=== PATIENT | male | born 1990 | race Caucasian/White ===

== ENCOUNTER 2021-04-20 19:18 | Emergency (ER) | payer MEDICAID, SELFPAY ==
[2021-04-20 19:19] VITALS: BP 141/89; PULSE 88; RESP 16; TEMP 36.6; O2SAT 95; BMI 23.8
--- NOTE | 2021-04-20 20:56 | EX.ED.GUMALE ---
HPI History of Present Illness Chief Complaint: Complaint Narrative Narrative: Patient presenting for evaluation secondary to hematuria. Patient states that since last night he has had around 3-4 episodes of bloody urine. He states that it is associated with some dysuria. Patient also reports that last night he had a massive hernia. Patient denies any flank pain. Denies any fevers. Denies any testicular pain. Denies any recent injuries associated with this. Is never had any prior similar episodes in the past. Patient is otherwise healthy. He is not on chronic medications. Review of systems otherwise negative. [facility] Medical History (Updated 04/20/21 @ 22:[address] Ravi Godoy MD) Anxiety Home Medications cephalexin 500 mg PO Q12 #14 capsule 04/20/21 [Rx Last Taken Unknown] Allergy/AdvReac Type Severity Reaction Status Date / Time No Known Allergies Allergy Verified 04/20/21 19:19 Social History Smoking Status: Current every day smoker tobacco type: cigarettes ROS ROS ED Constitutional Constitutional ED: Denies chills or fever(s) ENT ENT ED: Denies rhinorrhea Cardiovascular Cardiovascular: Denies chest pain Respiratory/Chest Respiratory/Chest: Denies cough or dyspnea Gastrointestinal Gastrointestinal: Denies abdominal pain, diarrhea, nausea or vomiting Genitourinary Genitourinary ED: Reports dysuria, hematuria and other Details: Hematospermia Musculoskeletal Musculoskeletal: Denies back pain Integumentary Denies rash Neurologic Neurologic: Denies paresthesias or weakness Psychiatric Psychiatric: Denies depression Endocrine Endocrinology: Denies fatigue Allergic/Immunologic Allergic/Immunologic ED: Denies urticaria EXAM Physical Exam Const Vital Signs: 04/20/21 19:19 04/20/21 21:08 Temperature 97.8 F Temperature Source Temporal Pulse Rate 88 Respiratory Rate 16 16 Blood Pressure 141/89 H Blood Pressure Mean 106 Pulse Ox 95 Oxygen Delivery Method Room Air Positive well nourished and well developed General Appearance ED: well developed and NAD HEENT Reports moist mucous membranes Negative for trauma or tenderness Eyes EOMs intact bilaterally Neck no lymphadenopathy, supple and no JVD Chest Wall inspection of chest normal Resp normal respiratory effort and clear to auscultation bilaterally Cardio regular rate, regular rhythm, no murmurs and peripheral pulses 2+ throughout GI normal to inspection, nondistended, normoactive bowel sounds, non-tender and no masses Palpation: soft Narrative: exam demonstrates external genitalia that are normal. Testicles are in a normal lie, there are nontender positive cremasteric reflex no evidence of palpable masses spermatic cord appears normal no evidence of mass or hernia with Valsalva. Patient has no evidence of penile lesions, no penile discharge. No inguinal adenopathy is noted. Back/Spine normal to inspection Extremity normal to inspection General Extremety ED: Negative for tenderness Neuro oriented x3 and no sensory deficits noted Sensorium / Orientation: alert Motor Exam: strength 5/5 throughout Psych mental status grossly normal Skin no rashes or lesions noted MDM MDM MDM Narrative Medical decision making narrative: Patient presented secondary to dysuria and hematuria. Patient has normal physical exam. Urinalysis demonstrates 5-10 white blood cells. Patient at this point potentially has an element of a urinary tract infection. I will place patient on a course of Keflex, first dose given in the emergency department. Given the patient's hematospermia I will give him follow-up with urology. Patient was discharged in stable condition. Lab Data Labs: Laboratory Results - last 24 hr 04/20/21 21:04 Urine Color Yellow Urine Clarity Clear Urine pH 6.0 Ur Specific Mel[place] 1.030 Urine Protein Negative Urine Glucose (UA) Normal Urine Ketones Negative Urine Occult Blood Negative Urine Nitrite Negative Urine Bilirubin Negative Urine Urobilinogen Normal Ur Leukocyte Esterase 25 H Urine RBC 0 SEEN Urine WBC 5-10 SEEN Ur Squamous Epith Cells 0-5 SEEN Urine Bacteria 0 SEEN Urine Mucus 0 SEEN Discharge Plan Triage Chief Complaint: Complaint ED Provider: Ravi Godoy Dx/Rx/DC Orders Clinical Impression: Acute UTI, Hematospermia Instructions: ED Urinary Tract Infections in Men Prescriptions: New cephalexin 500 mg capsule 500 mg PO Q12 Qty: 14 RF: 0 Primary Care Provider: Care Physician,No Primary Referrals: Mp Martin MD [STAFF PHYSICIAN] - 1-2 Weeks Care Physician,No Primary [Primary Care Provider] - Disposition Disposition: Home, Self Care
[2021-04-20 21:08] VITALS: RESP 16
[2021-04-20 21:17] LABS: Bacteria 0 SEEN /hpf (None Seen); Mucous, Urine 0 SEEN /hpf (<or=2+); Red Blood Cells-Urine 0 SEEN /hpf (0-5)
[2021-04-20 22:03] LABS: Color, Urine Yellow (Yellow); Glucose, Dipstick Normal (Normal); Ketone-Dipstick Negative (Negative); Leukocyte Esterase-Dipstick 25 /ul (Negative); Nitrite-Dipstick Negative (Negative); Occult Blood-Urine Negative /ul (Negative); Protein-Dipstick Negative (Negative); Urine Bilirubin Dipstick Negative (Negative); Urine Clarity Clear (Clear); Urine Urobilinogen Normal (Normal)
[2021-04-20 22:20] LABS: Squamous Epithelial Cells - UA 0-5 SEEN /hpf (0-5); White Blood Cells 5-10 SEEN /hpf (0-5)
[2021-04-20] MEDS: Cephalexin 250 MG Capsule 500 MG PO (22:48)
[2021-04-20 22:51] VITALS: RESP 16; O2SAT 98
== END 2021-04-20 22:51 | disposition home or self-care (01) ==
PROVIDERS: Emergency Provider Emergency Medicine
DX: N39.0 Urinary tract infection, site not specified (principal); R36.1 Hematospermia; F17.210 Nicotine dependence, cigarettes, uncomplicated
CPT/HCPCS: 81001; 99283

== ENCOUNTER 2021-10-04 15:00 | Emergency (ER) | payer MEDICAID, SELFPAY ==
[2021-10-04 15:01] VITALS: BP 144/112; PULSE 108; RESP 16; TEMP 35.7; O2SAT 99; BMI 25.0
--- NOTE | 2021-10-04 15:10 | ED.RN ---
Addendum entered by Mary Lundy 10/04/21 16:44: PT HAD SOILED SELF. ASSIST WITH GETTING NEW CLOTHES AND CLEANED UP. PLACED IN TRIAGE 2 WHERE HE USED PHONE TO CALL HIS S/O Original Note: PT VERY ANXIOUS/WORKED UP ABOUT OVERDOSING. I CANT BELIEVE I . I NEVER THOUGHT THIS WOULD HAPPEN TO ME, IM FREAKED OUT. OFFICER IN TRIAGE TALKING WITH PT ABOUT WHAT HAPPENED AND HAVING TO REVIVE HIM WITH NARCAN. WHEN OFFICER WAS DONE AND LEFT ROOM THIS NURSE DISCUSSED DRUG ABUSE AND RISKS WITH PATIENT AGAIN. DISCUSSED INPATIENT REHAB WHETHER HE WAS READY TO TAKE THAT STEP TO GET CLEAN. PT DECLINES DRUG REHAB AT THIS TIME. PT DENIES SI. ABSOLUTELY NOT. I NEVER THOUGHT THIS WOULD HAPPEN.
--- NOTE | 2021-10-04 16:02 | EX.ED.VIS.PS ---
HPI HPI - Psych History of Present Illness Chief Complaint: Overdose Detail of Chief Complaint: Intentional overdose Informant: patient and spouse/S.O. Onset/Context/Timing Onset: Hours Context: Sudden Onset Conflict: Family, Work and Financial Timing: Continuous Current Severity: Moderate Maximum Severity: Severe Worsened by: Situational factors and - (Patient was terminated from his job please read HPI) Relieved by: Nothing Associated Symptoms Associated Symptoms - Psych: Positive for Depressed Specific plan (suicidal thought): Overdosed snorting fentanyl Narrative Narrative: Patient is a 31-year-old male who has had admitted opiate addiction/dependency. His addiction/dependency has caused him problems with work and because he called off today again he was terminated. He snorted fentanyl. He does not inject and collaborated by significant other. He denies history of hepatitis or HIV. He does admit he has a problem. He has been snorting off and on for several months. Patient states he has symptoms of withdrawal when he does not use and this is caused him to miss work. Prior similar symptoms: No Recent Illness/Hospitalization: No [facility] Medical History (Updated 10/04/21 @ 20:[address] Selvin Alonzo MD) Alcohol abuse Anxiety Borderline personality disorder Depression Substance abuse Home Medications hydroxyzine pamoate 50 mg PO DAILY 10/04/21 [History Last Taken 10/03/21] Allergy/AdvReac Type Severity Reaction Status Date / Time No Known Allergies Allergy Verified 04/20/21 19:19 Social History (Updated 10/04/21 @ 16:[address] Selvin Alonzo MD) household members: significant other Smoking Status: Current every day smoker tobacco type: cigarettes alcohol intake: current substance use type: opiates ROS ROS ED Constitutional Constitutional ED: Denies chills, fever(s), subjective, sweats or weight loss Eyes Eyes: Denies blurry vision, change in vision or diplopia ENT ENT ED: Denies ear pain, rhinorrhea or sore throat Cardiovascular Cardiovascular: Denies chest pain, orthopnea, palpitations, paroxysmal nocturnal dyspnea or racing heartbeat Respiratory/Chest Respiratory/Chest: Denies cough, dyspnea, dyspnea on exertion, orthopnea, paroxysmal nocturnal dyspnea or sputum Gastrointestinal Gastrointestinal: Reports abdominal pain, diarrhea and nausea; Denies constipation, melena or vomiting Genitourinary Genitourinary ED: Denies dysuria, hematuria or urinary frequency Musculoskeletal Musculoskeletal: Denies arthralgias, back pain, myalgias or neck pain Integumentary Denies Abrasions or rash Neurologic Neurologic: Denies headache(s) or weakness Psychiatric Psychiatric: Reports anxiety, depression, suicidal thoughts and other Details: Suicide attempt Endocrine Endocrinology: Denies polydipsia, polyphagia or polyuria Hematologic/Lymphatic Hematologic/Lymphatic: Denies easy bleeding or easy bruising EXAM Physical Exam Const Vital Signs: 10/04/21 15:01 10/04/21 16:04 10/04/21 18:00 Temperature 96.3 F L Temperature Source Temporal Pulse Rate 108 H 82 86 Respiratory Rate 16 16 16 Blood Pressure 144/112 H 161/115 H 151/108 H Blood Pressure Mean 122 130 122 Pulse Ox 99 98 97 Oxygen Delivery Method Room Air Room Air Room Air 10/04/21 20:38 10/04/21 21:57 Temperature Temperature Source Pulse Rate Respiratory Rate 17 15 Blood Pressure Blood Pressure Mean Pulse Ox Oxygen Delivery Method Positive well nourished and well developed General Appearance ED: well developed and other Patient has a depressed affect, he is tearful, ; Negative for NAD or pallor HEENT Reports TM's clear and moist mucous membranes HEENT Narrative: Nares patent. Mild rhinorrhea. Posterior pharynx out erythema exudate. Uvula midline. There is no angioedema. There is no carotid bruit. normocephalic and atraumatic; Negative for trauma or tenderness Tympanic Membrane ED: Yes TM's clear Eyes PERRL and EOMs intact bilaterally General Eye ED: Negative for pale conjunctiva or scleral icterus Neck no lymphadenopathy, supple and no JVD General: Negative for tenderness Resp normal respiratory effort and clear to auscultation bilaterally Cardio S1 normal heart sound, S2 normal heart sound and no murmurs Rate: tachycardic Rhythm: regular rhythm GI non-tender, non-distended and no masses Auscultation: normoactive bowel sounds Palpation: soft Back/Spine no CVA tenderness Cervical Spine: Negative for cervical spine tenderness Thoracic Spine / Upper Back: Negative for thoracic spinal tenderness Lumbar Spine / Lower Back: Negative for lumbar spinal tenderness Extremity normal to inspection General Extremety ED: Negative for edema or tenderness General Extremity: Negative for edema Neuro oriented x3, CN's II-XII intact bilaterally and deep tendon reflexes 2+ bilaterally Lincoln Coma Scale: document GCS findings Spontaneous Obeys Commands Oriented 15 Sensorium / Orientation: alert and oriented to person Motor Exam: strength 5/5 throughout Psych cooperative, denies hallucinations and denies homicidal ideation; Negative for denies suicidal ideation Appearance: grossly normal Attitude: engaged Activity / Motor Behavior: psychomotor slowing Speech: slow, soft, No mute, No pressured and No slurred Mood & Affect: depressed, sad, tearful and labile affect Thought Process: normal thought process Thought Content: suicidality Attention / Concentration: attention grossly intact Memory / Cognition: memory grossly intact and memory grossly impaired Insight: questionable Judgement: limited Skin no rashes or lesions noted General Skin Exam: Negative for jaundice or pallor Lesions: no lesions Rashes: no rashes MDM MDM MDM Narrative Medical decision making narrative: Patient attempted to harm himself by overdose requiring 4 mg of Narcan. He admits he has a drug addiction problem. He admits he attempted to harm himself. Consulted licensed direct entry midwife to facilitate placement for inpatient psychiatric care. Patient is medically cleared. He was accepted at [facility]. Lab Data Attestation: I reviewed the patient's lab results. Lab results narrative: CBC is unremarkable. Electrolyte panel is unremarkable. Alcohol is 118. Tox screen was positive for cannabis. 2-hour alcohol level is 47. Patient was seen by case management. She is working on disposition to psychiatric facility. Labs: Laboratory Results - last 24 hr 10/04/21 10/04/21 10/04/21 16:00 16:00 16:00 WBC 6.8 RBC 4.82 Hgb 16.1 Hct 45.9 MCV 95.2 H MCH 33.4 H MCHC 35.1 RDW Std Deviation 40.2 RDW Coeff of Zafar 11.5 L Plt Count 317 MPV 9.3 Immature Gran % (Auto) 0.600 Neut % (Auto) 69.9 Lymph % (Auto) 16.9 L Bell % (Auto) 5.7 Eos % (Auto) 6.3 H Baso % (Auto) 0.6 Absolute Neuts (auto) 4.8 Absolute Lymphs (auto) 1.15 Nucleated RBC % 0 Sodium 142 Potassium 3.6 Chloride 110 H Carbon Dioxide 27.0 Anion Gap 5 BUN 5 L Creatinine 0.87 Estim Creat Clear Calc 149.74 Est GFR (MDRD) Af Amer 133 Est GFR (MDRD) Non-Af 110 BUN/Creatinine Ratio 5.8 L Glucose 85 Calcium 9.0 Urine Opiates Screen Urine Methadone Screen Ur Barbiturates Screen Ur Phencyclidine Scrn Ur Amphetamines Screen U Methamphetamin-MDMA U Benzodiazepines Scrn Urine Cocaine Screen U Cannabinoids Screen Ur Drug Screen Comment Ethyl Alcohol 118.0 10/04/21 10/04/21 16:38 17:00 WBC RBC Hgb Hct MCV MCH MCHC RDW Std Deviation RDW Coeff of Zafar Plt Count MPV Immature Gran % (Auto) Neut % (Auto) Lymph % (Auto) Bell % (Auto) Eos % (Auto) Baso % (Auto) Absolute Neuts (auto) Absolute Lymphs (auto) Nucleated RBC % Sodium Potassium Chloride Carbon Dioxide Anion Gap BUN Creatinine Estim Creat Clear Calc Est GFR (MDRD) Af Amer Est GFR (MDRD) Non-Af BUN/Creatinine Ratio Glucose Calcium Urine Opiates Screen NEGATIVE Urine Methadone Screen NEGATIVE Ur Barbiturates Screen NEGATIVE Ur Phencyclidine Scrn NEGATIVE Ur Amphetamines Screen NEGATIVE U Methamphetamin-MDMA NEGATIVE U Benzodiazepines Scrn NEGATIVE Urine Cocaine Screen NEGATIVE U Cannabinoids Screen POSITIVE H Ur Drug Screen Comment Ethyl Alcohol 47.0 Discharge Plan Triage Chief Complaint: Overdose ED Provider: Selvin Alonzo Dx/Rx/DC Orders Clinical Impression: Suicide attempt by fentanyl overdose, Depression Prescriptions: No Action hydroxyzine pamoate 50 mg capsule 50 mg PO DAILY RF: 0 Primary Care Provider: Care Physician,No Primary Referrals: Care Physician,No Primary [Primary Care Provider] - Disposition Disposition: Psychiatric Hospital or Unit
[2021-10-04 16:04] VITALS: BP 161/115; PULSE 82; RESP 16; O2SAT 98
[2021-10-04 16:11] LABS: Absolute Lymphocyte Count 1.15 X10^3/uL (0.83-4.51); Absolute Neutrophil Count 4.8 X10^3/uL (2.0-7.7); Basophil# 0.04 X10^3/uL; Basophil% 0.6 % (0-1); Eosinophil# 0.43 X10^3/uL; Eosinophils% 6.3 % (0-5); Hematocrit 45.9 % (40-54); Hemoglobin 16.1 g/dL (13.0-16.5); Lymphocyte # 1.15 X10^3/ul (0.83-4.51); Lymphocyte % 16.9 % (19-41); Mean Corp Hgb Conc 35.1 g/dL (32-36); Mean Corpuscular Hgb 33.4 pg (27.0-32.0); Mean Corpuscular Volume 95.2 fL (80-94); Mean Platelet Vol. 9.3 fl (6.2-12.0); Monocyte# 0.39 X10^3/uL; Monocyte% 5.7 % (0-10); NRBC Flagged by Analyzer 0 % (0-5); Neutrophil # 4.75 X10^3/uL (2.7-7.7); Neutrophil % 69.9 % (47-70); Platelet Count 317 K/mm3 (150-450); RBC Distribution Width CV 11.5 % (11.6-14.6); RBC Distribution Width SD 40.2 fl (35.1-43.9); Red Blood Count 4.82 M/mm3 (4.6-6.2); White Blood Count 6.8 K/mm3 (4.4-11.0)
[2021-10-04 16:31] LABS: Anion Gap 5 (5-15); BUN 5 mg/dL (7-18); BUN/Creat Ratio 5.8 RATIO (10-20); Chloride 110 mmol/L (98-107); Creatinine, Serum 0.87 mg/dL (0.70-1.30); EST Glomerular Filtration Rate 110 mL/min (>60); Est Glom Filt Rate - Afr Amer 133 mL/min (>60); Estimated Creatinine Clearance 149.74 ml/min; Glucose 85 mg/dL (74-106); Potassium 3.6 mmol/L (3.5-5.1); Sodium Level 142 mmol/L (136-145)
--- NOTE | 2021-10-04 17:02 | CM.ED ---
Social Work Consult: Suicidal Referral source: Dr. Alonzo. Chief Complaint: Patient states to have overdose on Fentanyl in attempt to end life. Patient states plan was to do as much as I could until I didn't wake up. Marital/Social History: Single. Engaged to Yael Gaspar and has been in relationship with for the past three years. Living Situation: Lives with girlfriend and another roommate. Support/Resources: No active counseling or community resources. Reports to have last been involved in community resources last summer and to have been involved with [facility] for substance abuse treatment. History: None Education/Employment History: Was working at [employer] until this morning when patient was fired. Patient reports to have been working for [employer] for the past month. Patient states to have been having attendance issues due to withdrawal symptoms. Patient denies issues with comprehension or understanding. Mental Health Treatment/History: Borderline Personality, Anxiety, and Depression. Patient reports to have taken Vistaril a few days ago but this was not prescribed to patient. Patient denies any current prescribed medications to manage mental health. Patient denies history of inpatient psychiatric placement. Triggers/Stressors: Losing job this morning, politics, the climate. Coping Skills: Listening to music, going on walks, talking with fironnie. Abuse Issues: Denies Substance Abuse Hx: Reports to abuse Fentanyl. Patient reports to use THC and to have last used 2 days ago. Patient reports to abuse alcohol at times and to have last drank this morning. Risk to Self/Others: Patient reports suicidal thoughts all this morning. Patient reports intent and plan to kill self by overdosing on whatever I could take. Patient reports history of overdosing to complete suicide one year ago, but I did not get help. Patient denies homicidal thoughts, plans, intents. Patient denies violence against others. Mental Exam: A&Ox3 Appearance/General Behavior: calm. Mood/Affect: Depressed. Sad. Tearful. Communication Pattern: Responds to questions. Thought Process: Denies visual or auditory hallucinations. Judgement: Poor Assessment: Met with patient in room. Introduced self and social work instructor role. Patient agreeable to speak with this social work instructor. Patient Yael de la rosa present. Patient wishing for Yael to remain present in room during conversation. This social work instructor inquired as to how patient is feeling. Patient state embarrassed, gokul. Patient states to have scared myself. Patient reports to not feel safe to return to the community with outpatient services. Patient is open to inpatient psychiatric placement due to patient suicide attempt and not able to contract for safety. Per EMS patient was . Narcan was administered and patient brought back to life. Yael reports to have been with patient and to have called the police. Active support and listening provided. Collaborating with Dr. Alonzo. Dr. Alonzo agreeable to inpatient psychiatric placement. PLAN: Inpatient psychiatric placement. Will continue to follow. Abigail Negrete MSW, YAIMA-S
[2021-10-04 17:59] LABS: Amphetamine Urine VISTA NEGATIVE (<1000 ng/mL); Barbiturate Urine VISTA NEGATIVE (< 200 ng/mL); Benzodiazepine Urine VISTA NEGATIVE (< 200 ng/mL); Cocaine Urine VISTA NEGATIVE (< 300 ng/mL); Ecstacy Urine VISTA NEGATIVE (< 500 ng/mL); Methadone Urine VISTA NEGATIVE (< 300 ng/mL); PCP Urine VISTA NEGATIVE (< 25 ng/mL); THC Urine VISTA POSITIVE (< 50 ng/mL); Vista UDS pH Range 7
[2021-10-04 18:00] VITALS: BP 151/108; PULSE 86; RESP 16; O2SAT 97
--- NOTE | 2021-10-04 19:45 | CM.ED ---
Social Work Telephone call to [facility], Intake. Intake communicating to be able to accept patient insurance and to have an open bed. Clinical information faxed. Will continue to follow. Abigail ROBERTSON, OSCAR
[2021-10-04 20:38] VITALS: RESP 17
--- NOTE | 2021-10-04 21:18 | CM.ED ---
Social Work Telephone call to [facility], intake. Intake confirms to have received referral, still waiting to be reviewed. Will continue to follow. Abigail ROBERTSON, OSCAR
--- NOTE | 2021-10-04 21:53 | CM.ED ---
Social Work Telephone call to [facility], intake. Intake reports to have open beds. Clinical information faxed. Will continue to follow. Abigail ROBERTSON, OSCAR
[2021-10-04 21:57] VITALS: RESP 15
--- NOTE | 2021-10-04 22:29 | CM.ED ---
Social Work Telephone call from [facility], intake. Patient has been accepted by [facility]i [facility] N[facility] to the Dual Diagnosis unit. Nursing to call report to [phone]. [place] faxed. Medical team updated. Patient sleeping, nursing to updated. Telephone call to [facility], referral canceled. PLAN: Transfer to [facility]. Abigail ROBERTSON, OSCAR
[2021-10-05 00:05] VITALS: BP 148/85; PULSE 84; RESP 16; O2SAT 98
[2021-10-05 02:12] VITALS: RESP 15
[2021-10-05 02:57] VITALS: BP 148/85; PULSE 72; RESP 18; O2SAT 99
== END 2021-10-05 02:58 ==
PROVIDERS: Emergency Provider Emergency Medicine; Visit Provider Emergency Medicine
DX: T40.414A Poisoning by fentanyl or fentanyl analogs, undetermined, initial encounter (principal); T14.91XA Suicide attempt, initial encounter; F17.210 Nicotine dependence, cigarettes, uncomplicated; F32.A Depression, unspecified; Z79.899 Other long term (current) drug therapy
CPT/HCPCS: 36415; 80048; 80307; 82077; 85025; 87426; 99285